=== PATIENT | female | born 1970 | race Caucasian/White ===

== ENCOUNTER 2017-05-09 18:36 | Emergency (ER) | payer MEDICAID ==
[2017-05-09 18:43] VITALS: TEMP 98.6
--- NOTE | 2017-05-09 18:53 | EDPHY ---
H & P Time Seen by Provider: 05/09/17 18:46 HPI/ROS: CHIEF COMPLAINT: Chest pain HISTORY OF PRESENT ILLNESS: This patient is a 47 year old female complaining of substernal chest pain onset Monday. Initially her pain was dull and waxed and waned. Yesterday, the pain became sharp and radiates straight through to her back. Her discomfort has never completely resolved since onset. She denies history of similar symptoms. No unusual or strenuous recent activities. She thought her discomfort may have been due to indigestion, but when it became sharp, she took aspirin which relieved the pain slightly. Her discomfort is unchanged by movement or deep inspiration. She endorses family history of heart disease. No recent illness, fever, pain or swelling in her legs, shortness of breath, or other associated symptoms. REVIEW OF SYSTEMS: A 10 point review of systems was performed and is negative with the exception of the elements mentioned in the history of present illness. Past Medical/Surgical History: Denies. Social History: . Nonsmoker. Lives in [place]. Smoking Status: Never smoked Physical Exam: General Appearance: Alert, no distress Eyes: Pupils equal and round, no conjunctival pallor or injection ENT, Mouth: Mucous membranes moist Neck: Normal inspection Respiratory: Lungs are clear to auscultation Cardiovascular: Regular rate and rhythm Chest: Tenderness to left inferior costochondral junction, recreates pain. Gastrointestinal: Abdomen is soft and non- tender Neurological: A&O, nonfocal, normal gait Skin: Warm and dry, no rash Extremities: Nontender, no pedal edema Psychiatric: Mood and affect normal Constitutional: Initial Vital Signs Temperature (C) 37 C 05/09/17 18:41 Heart Rate 71 05/09/17 18:41 Respiratory Rate 17 05/09/17 18:41 Blood Pressure 127/77 H 05/09/17 18:41 O2 Sat (%) 99 05/09/17 18:41 O2 Delivery Mode Room Air Allergies/Adverse Reactions: gluten Allergy (Verified 05/09/17 18:41) lactose Allergy (Verified 05/09/17 18:41) Home Medications: Medication Instructions Recorded NK [No Known Home Meds] 02/09/14 Medical Decision Making - Diagnostics EKG Interpretation: EKG interpreted by me reveals normal sinus rhythm, rate 77, no ST/T changes. Interpretation: normal EKG Imaging Results: CXR: NAD Imaging: I viewed and interpreted images myself ED Course/Re-evaluation: 47 y/o female presents with five day history of chest pain. On exam, her pain is reproducible with palpation of the left inferior costochondral junction. Likely musculoskeletal etiology of pain. EKG reveals no evidence of ischemia or dysrhythmia. chest x-ray, labs including CBC, D-dimer. Plan to administer 15mg IV Toradol for pain relief. EKG shows sinus rhythm. Chest x-ray unremarkable. D-dimer negative. She is low risk for pulmonary embolism per Wells criteria. I feel that I can safely exclude pulmonary embolism as diagnosis. Given prolonged and atypical pain, I do not suspect ACS. Reassessed patient. Clinical presentation consistent with costochondritis. Ibuprofen instructions given. Plan to d/c in good condition. Follow up and return precautions discussed. The patient is comfortable with this plan. Differential Diagnosis: Differential diagnosis includes though it is not limited to pneumonia, pneumothorax, pulmonary embolism, aortic dissection, pericarditis, acute coronary syndrome. - Data Points Laboratory Results: Laboratory Results 05/09/17 18:55 Medications Given: Discontinued Medications Ketorolac Tromethamine (Toradol) 15 mg IVP EDNOW ONE Stop: 05/09/17 19:35 Last Admin: 05/09/17 19:41 Dose: 15 mg Departure - Departure Disposition: Home, Routine, Self-Care Clinical Impression: Chest pain Qualifiers: Chest pain type: other chest pain Qualified Code(s): R07.89 - Other chest pain ; R07.8 - Other chest pain Condition: Good Instructions: Chest Pain (ED) Additional Instructions: 1. Follow up with your primary care provider for persistent symptoms. 2. Take ibuprofen or Tylenol as directed below as needed for pain relief. 3. Return to the Emergency Department for fever, chest pain, shortness of breath, increasing pain or other worsening of condition. Referrals: Julienne Dominguez MD [Medical Doctor] - As per Instructions Report Scribed for: Josie Clark Report Scribed by: Ya Moore Date of Report: 05/09/17 Time of Report: 18:53 Physician Review and Approval Statement: 05/09/17 18:53 Portions of this note were transcribed by a medical hospital sales. I personally performed a history, physical exam, medical decision making, and confirmed accuracy of information the transcribed note.
--- NOTE | 2017-05-09 18:53 | CPEKG ---
Heart Rate: 77 RR Interval: 779 P-R Interval: 172 QRSD Interval: 80 QT Interval: 384 QTC Interval: 435 P [place]: 64 QRS [place]: 74 T Wave [place]: 40 EKG Severity - NORMAL ECG - EKG Impression: SINUS RHYTHM Electronically Signed By: Josie Clark 09-May-2017 22:56:29
[2017-05-09] MEDS ORDERED: KETOROLAC 15 MG/1 ML SDV IVP ONE (19:34)
[2017-05-09 19:42] VITALS: BP 116/73; PULSE 62; RESP 18; O2SAT 98
[2017-05-09 19:43] LABS: % IMMATURE GRANULYOCYTES 0.4 % (0.0-1.1); ABSOLUTE IMMATURE GRANULOCYTES 0.02 10^3/uL (0.00-0.10); ADD DIFF? NO; ADD MORPH? NO; ADD SCAN? NO; ATYPICAL LYMPHOCYTE FLAG 0 (0-99); FRAGMENT RBC FLAG 0 (0-99); HEMATOCRIT 39.1 % (38.0-47.0); HEMOGLOBIN 14.2 g/dL (12.6-16.3); LEFT SHIFT FLG 0 (0-99); LIPEMIA HEMOLYSIS FLAG 90 (0-99); MEAN CELL HEMOGLOBIN 32.5 pg (27.9-34.1); MEAN CELL HEMOGLOBIN CONCENTR. 36.3 g/dL (32.4-36.7); MEAN CELL VOLUME 89.5 fL (81.5-99.8); MEAN PLATELET VOLUME 9.6 fL (8.7-11.7); PLATELET CLUMPS FLAG 0 (0-99); PLATELET COUNT 235 10^3/uL (150-400); RED BLOOD CELL COUNT 4.37 10^6/uL (4.18-5.33); RED CELL DISTRIBUTION WIDTH 12.4 % (11.5-15.2)
== END 2017-05-09 20:16 | disposition home or self-care (01) ==
DX: R07.89 Other chest pain (principal)
CPT/HCPCS: 96374; J1885

== ENCOUNTER 2018-10-25 08:03 | Day surgery (SDC) | payer MEDICAID, OTHER ==
[~2018-10-25 08:03] MED LIST: ceFAZolin 2 GM/DEXTROSE 100 ML IV ONE
[2018-10-25] MEDS ORDERED: LR 1,000 ML IV ONE (08:04)
[2018-10-25] MEDS ORDERED: BUPIVACAINE 0.5% 30 ML SDV ONE (08:42)
--- NOTE | 2018-10-25 09:41 | PDHPUP ---
History & Physical Update H&P update statement: This history and physical update is based on an assessment of the patient which was completed after admission or registration (within 24 hours), but prior to the surgery/procedure. H&P update: H&P reviewed & patient examined, no change in patient's condition since H&P completed
[2018-10-25] MEDS ORDERED: PROMETHAZINE HCL 25 MG/ML INJ IVP PRN (10:33)
[2018-10-25] MEDS ORDERED: HYDROmorphONE/DILAUDID 1 MG/ML INJ IVP PRN (10:33)
[2018-10-25] MEDS ORDERED: fentaNYL 100 MCG/2 ML INJ IVP PRN (10:33)
[2018-10-25] MEDS ORDERED: HYDROCODONE/APAP 5/325 TAB PO PRN (10:33)
[2018-10-25] MEDS ORDERED: ALBUTEROL 3 ML DEYVIAL IH PRN (10:33)
[2018-10-25] MEDS ORDERED: NALOXONE HCL 0.4 MG/ML INJ IVP PRN (10:33)
[2018-10-25] MEDS ORDERED: ONDANSETRON 4 MG/2 ML VIAL IVP PRN (10:33)
[2018-10-25] MEDS ORDERED: MIDAZOLAM 2 MG/2 ML VIAL IVP ONE (10:33)
--- NOTE | 2018-10-25 10:33 | PDANEPAE ---
ANE History of Present Illness Umbilical Hernia ANE Past Medical History - Cardiovascular History Hx Hypertension: No Hx Arrhythmias: No Hx Chest Pain: No Hx Coronary Artery / Peripheral Vascular Disease: No Hx CHF / Valvular Disease: No Hx Palpitations: No - Pulmonary History Hx COPD: No Hx Asthma/Reactive Airway Disease: No Hx Recent Upper Respiratory Infection: No Hx Oxygen in Use at Home: No Hx Sleep Apnea: No Sleep Apnea Screening Result - Last Documented: Negative Pulmonary History Comment: RECENT COUGH - Neurologic History Hx Cerebrovascular Accident: No Hx Seizures: No Hx Dementia: No Neurologic History Comment: HEADACHES IN PAST - Endocrine History Hx Diabetes: No - Renal History Hx Renal Disorders: No - Liver History Hx Hepatic Disorders: No - Neurological & Psychiatric Hx Hx Neurological and Psychiatric Disorders: No - Cancer History Hx Cancer: No - Congenital Disorder History Hx Congenital Disorders: No - GI History Hx Gastrointestinal Disorders: Yes Gastrointestinal History Comment: IBS - Other Health History Other Health History: NEG - Chronic Pain History Chronic Pain: No - Surgical History Prior Surgeries: COLONOSCOPY ANE Review of Systems Review of Systems: - Exercise capacity METS (RN): 4 METS ANE Patient History - Allergies Allergies/Adverse Reactions: gluten Allergy (Verified 05/09/17 18:41) lactose Allergy (Verified 05/09/17 18:41) - Home Medications Home Medications: Albuterol 5 mg/ml INH 5 mg IH QID 10/24/18 [Last Taken 10/25/18 08:00] - NPO status NPO Since - Liquids (Date): 10/25/18 NPO Since - Liquids (Time): 06:00 NPO Since - Solids (Date): 10/24/18 NPO Since - Solids (Time): 21:00 - Smoking Hx Smoking Status: Never smoked - Family Anes Hx Family Hx Anesthesia Complications: NEG ANE Labs/Vital Signs - Vital Signs Blood Pressure: 106/74 Heart Rate: 76 Respiratory Rate: 14 O2 Sat (%): 99 Height: 170.18 cm Weight: 72.575 kg ANE Physical Exam - Airway Neck exam: FROM Mallampati Score: Class 2 Mouth exam: normal dental/mouth exam - Pulmonary Pulmonary: clear to auscultation - Cardiovascular Cardiovascular: regular rate and rhythym - ASA Status ASA Status: II ANE Anesthesia Plan Anesthesia Plan: GA with mask
[2018-10-25] MEDS ORDERED: MIDAZOLAM 2 MG/2 ML VIAL ONE (10:36)
[2018-10-25] MEDS ORDERED: PROPOFOL/EMULSION 500 MG/50 ML BOTTLE IV ONE (10:36)
[2018-10-25] MEDS ORDERED: fentaNYL 100 MCG/2 ML INJ ONE (10:42)
[2018-10-25] MEDS ORDERED: DEXAMETHASONE 4 MG/ML VIAL ONE (10:42)
[2018-10-25] MEDS ORDERED: ONDANSETRON 4 MG/2 ML VIAL ONE (10:42)
[2018-10-25] MEDS ORDERED: KETOROLAC 30 MG/1 ML SDV ONE (10:42)
--- NOTE | 2018-10-25 11:27 | POSTANESTH ---
Post Anesthetic Evaluation Cardiovascular Status: Normal, Stable Respiratory Status: Normal, Stable Level of Consciousness/Mental Status: Can Participate in Eval, Mildly Sleepy, Arousable Pain Control: Adequate, Prn Tx Ordered Nausea/Vomiting Control: Adequate, Prn Tx Ordered Complications Possibly Related to Anesthesia: None Noted
[2018-10-25] MEDS ORDERED: HYDROCODONE/APAP 5/325 TAB ONE (12:33)
--- NOTE | 2018-10-25 13:10 | POSTOPPROG ---
Post Op Note Date of Operation: 10/25/18 Surgeon: Costa Shaffer Senior It Recruiter: Marli Anesthesiologist: Isaac Anesthesia: GET(General Endotracheal) Pre-op Diagnosis: Incarcerated umbilical hernia Post-op Diagnosis: same Indication: same Procedure: Open repair of incarcerated umbilical hernia Inf/Abcess present in the surg proc area at time of surgery?: No Depth: Organ Space EBL: Minimal
[2018-10-25 13:23] VITALS: BP 101/74
== END 2018-10-25 13:18 | disposition home or self-care (01) ==
LOC: FSGY 08:03
PROVIDERS: ATTEND Surgery
PROC: 0WQF0ZZ Repair Abdominal Wall, Open Approach (ICD-10-PCS; principal; 2018-10-25 09:30)
DX: K42.0 Umbilical hernia with obstruction, without gangrene (principal)
CPT/HCPCS: J0690; J1100; J1885; J2250; J2405; J2704; J3010